=== PATIENT | male | born 1955 | race African-American/Black ===

== ENCOUNTER → 2019-09-07 | Outpatient (CLI) | payer MEDICARE ==
[~2019-09-07] MED LIST: AMI2 PO; ASPI-1497 MT; CARV3.1242 MT; CLOP75TA15 PO; FURO20TA4 PO; INSU100I28 SQ; LIP40 PO; LISI2.5T47 MT; METO-539 PO
== END | disposition home or self-care (01) ==
LOC: EDSEX 12:22 → LAB 12:22
PROVIDERS: ATTEND Specialist
DX: R05 Cough (principal); Z20.828 Contact with and (suspected) exposure to other viral communicable diseases
CPT/HCPCS: U0003-CS